=== PATIENT | male | born 1945 | race Caucasian/White ===

== ENCOUNTER 2020-05-23 12:00 | Outpatient (RCR) | payer MEDICARE, SELFPAY ==
[2020-05-23] MEDS: COVID-19 VACC, MRNA(PFIZER)/PF 30 MCG/0.3 ML SYRINGE IM (11:49)
[2020-06-13] MEDS: COVID-19 VACC, MRNA(PFIZER)/PF 30 MCG/0.3 ML SYRINGE IM (12:09)
== END 2020-08-20 23:59 ==
LOC: IMMUN 12:00
PROVIDERS: Visit Provider Family Medicine
DX: Z23 Encounter for immunization (principal)
CPT/HCPCS: 0001A; 0002A; 91300

== ENCOUNTER 2021-02-05 13:39 | Outpatient (CLI) | payer MEDICARE, SELFPAY ==
[2021-02-05 13:51] VITALS: BP 148/93; PULSE 74; RESP 16; TEMP 37; O2SAT 99; BMI 26.6
[2021-02-05] MEDS: 0.9% Saline Lock 10 ML Syringe IV (13:55)
[2021-02-05 14:28] VITALS: BP 131/68; PULSE 67; RESP 16; TEMP 36.9; O2SAT 98
[2021-02-05 15:16] VITALS: BP 127/65; PULSE 69; RESP 16; TEMP 36.6; O2SAT 98
== END 2021-02-05 15:29 | disposition home or self-care (01) ==
LOC: MS3OUT 13:40 → MS3 13:40
PROVIDERS: Referring Provider Nurse Practitioner Adult Health; Visit Provider Nurse Practitioner Adult Health
DX: Z23 Encounter for immunization (principal); U07.1 COVID-19
CPT/HCPCS: J7050; M0245; Q0245; A4216